=== PATIENT | male | born 1995 | race Caucasian/White ===

== ENCOUNTER 2021-07-07 17:51 | Emergency (ER) | payer OTHER, SELFPAY ==
--- NOTE | ~2021-07-07 | XR_ITS ---
EXAMINATION: XR finger 5th LT min 2V EXAM DATE: 07/07/2021 18:12 INDICATION: Distal left 5th finger pain x 5 days etiology unknown. TECHNIQUE: Left 5th finger frontal, lateral and oblique projections obtained and reviewed. There i s no prior study for comparison. FINDINGS: There is acute closed posttraumatic essentially nondisplaced left 5th tuft fracture. There is overlying soft tissue swelling. No other suspicious findings. IMPRESSION: Left 5th toe fracture. Reviewed, dictated and finalized at location G. ETOLOGIST IMPRESSION: Left 5th toe fracture.
[2021-07-07 18:03] VITALS: BP 136/78; PULSE 80; RESP 16; TEMP 36.3; O2SAT 99
--- NOTE | 2021-07-07 18:19 | ED.GENADULT ---
HPI - General Adult General Chief complaint: Extremity Injury, Upper Stated complaint: left 5th digit injury Time Seen by Provider: 07/07/21 18:19 Source: patient Mode of arrival: ambulatory Limitations: no limitations History of Present Illness HPI narrative: 25-year-old male presented for complaint of pain and swelling to left digit for 5 days after injury. Small abrasion over the cuticle reported. 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 Does not have a specific known injury. He does say the swelling has significantly subsided but continues to report pain. Denies numbness, tingling, weakness, pus or drainage to the finger. Has been taking Tylenol for pain. Related Data Home Medications Medication Instructions Recorded Confirmed fluticasone propionate [Flonase] 1 spray INTRANASAL BID 07/07/21 07/07/21 Allergies Allergy/AdvReac Type Severity Reaction Status Date / Time No Known Allergies Allergy Verified 07/07/21 18:16 Review of Systems Review of Systems: CONSTITUTIONAL: Denies body aches, fever, chills EYES: Denies visual changes ENT: Denies rhinorrhea, congestion CARDIOVASCULAR: Denies chest pain, palpitations, or edema. RESPIRATORY: Denies cough or dyspnea. GASTROINTESTINAL: Denies abdominal pain, nausea, vomiting, or diarrhea. SKIN: left 5th digit pain, swelling, abrasion MUSCULOSKELETAL: Denies back pain, joint pain, or myalgia. NEUROLOGIC: Denies headache, numbness, tingling, or weakness. PSYCH: Denies depression or anxiety. All systems reviewed & are unremarkable except as noted in HPI and below PMFSH Comments At time of signature, I have reviewed and agree with nursing past medical, surgical, social and family history unless otherwise noted. Please see nursing chart for further information. There is no relevant family history pertinent to the presenting complaint Exam Narrative: GENERAL: Well-appearing, well-nourished, and in no acute distress. HEAD: Normocephalic, atraumatic. EYES: PERRLA, conjunctivae clear NECK: Supple. CHEST: Speaks in full sentences. No respiratory distress. HEART: Regular rate and rhythm. Normal and equal peripheral pulses. EXTREMITIES: left 5th digit with mild swelling and redness at distal aspect, superficial avulsion of skin approx 3mm at cuticle, ROM limited. sensation intact, point tenderness to distal aspect. No obvious deformity; pulse palpable and equal bilaterally, skin warm, dry, pink. Capillary refill less than 3 seconds. SKIN: Warm, dry NEURO: Alert and oriented x3. PSYCH: Normal mood and affect Course Course Emergency Course: Patient is aware of diagnosis, understands and agrees to treatment plan. Anticipatory guidance given. Patient agrees to follow-up as directed and is aware of reasons to seek care at the emergency department. Portions of this record may have been created with voice recognition software Level of Care: Express Care Visit Vital Signs Vital signs: Vital Signs Temperature 97.3 F L 07/07/21 18:03 Pulse Rate 80 07/07/21 18:03 Respiratory Rate 16 07/07/21 18:03 Blood Pressure 136/78 07/07/21 18:03 Pulse Oximetry 99 07/07/21 18:03 Temperature 97.3 F L 07/07/21 18:03 Pulse Rate 80 07/07/21 18:03 Respiratory Rate 16 07/07/21 18:03 Blood Pressure 136/78 07/07/21 18:03 Pulse Oximetry 99 07/07/21 18:03 Reviewed Medical Decision Making Vital Signs Vital Signs: Vital Signs Temperature 97.3 F L 07/07/21 18:03 Pulse Rate 80 07/07/21 18:03 Respiratory Rate 16 07/07/21 18:03 Blood Pressure 136/78 07/07/21 18:03 Pulse Oximetry 99 07/07/21 18:03 Temperature 97.3 F L 07/07/21 18:03 Pulse Rate 80 07/07/21 18:03 Respiratory Rate 16 07/07/21 18:03 Blood Pressure 136/78 07/07/21 18:03 Pulse Oximetry 99 07/07/21 18:03 Imaging Data My impression: Left 5th tuft fracture Radiologist's impression: EXAMINATION: XR finger 5th LT min 2V EXAM DATE: 06/16
== END 2021-07-07 18:40 | disposition home or self-care (01) ==
PROVIDERS: Emergency Provider Nurse Practitioner Family; PCP Nurse Practitioner Adult Health
DX: S62.667A Nondisplaced fracture of distal phalanx of left little finger, initial encounter for closed fracture (principal); X58.XXXA Exposure to other specified factors, initial encounter
CPT/HCPCS: 73140; 99204; G0463